=== PATIENT | female | born 1955 | race Caucasian/White ===

== ENCOUNTER 2019-11-03 15:46 | Emergency (ER) | payer OTHER ==
[2019-11-03] MEDS ORDERED: ALBUTEROL 2.5 MG/3 ML NEB SOL ONE (18:30)
[2019-11-03] MEDS ORDERED: IPRATROPIUM BROM 0.5MG/2.5ML ONE (18:30)
[2019-11-03] MEDS ORDERED: predniSONE 20 MG TAB ONE (18:30)
[2019-11-03] MEDS ORDERED: CEFTRIAXONE/SWI 1gm 1 GM/10 ML SYR ONE (18:30)
[2019-11-03] MEDS ORDERED: NA CHLORIDE 0.9% 2,000 ML ONE (18:32)
--- NOTE | 2019-11-03 18:43 | RAD REPORT ---
EXAM DESCRIPTION: RAD - Chest Single View - 11/03/2019 6:23 pm CLINICAL HISTORY: COUGH COMPARISON: No comparisons TECHNIQUE: AP portable chest image was obtained 11/03/2019 6:23 pm . FINDINGS: Lungs are normal volume. Patient has a baseline fibrotic pattern. Medial right base pneumo becca findings are present. Faint rounded density in the right midlung field is probably some form of a rtifact rather than a true lung lesion. No comparisons are available. This can be re-evaluated with a follow-up examination the tracks the pneumonia. Heart and vasculature are normal. No measurable pleu ral effusion and no pneumothorax. No acute bony abnormality seen. No acute aortic findings suspected. IMPRESSION: Medial right lung base pneumonia. Faint lucent density in the right midlung field warrants ongoing monitoring. Follow-up chest examination in 4-6 weeks could be performed to assure clearing of the pneumonia and t o re-evaluate the right mid lung field finding.
[2019-11-03 19:07] LABS: Absolute Lymphocytes (CBC) 1.2 K/uL (0.7-4.9); Basophils % 0.2 % (0-1.3); Hematocrit 35.7 % (36.0-45.0); Lymphocytes % 7.7 % (15.3-44.8); RBC Red Blood Cell Count 3.75 M/uL (3.86-4.86)
[2019-11-03 19:11] LABS: Protime INR 1.19
[2019-11-03] MEDS ORDERED: MORPHINE 4 MG/ML SYR ONE (19:14)
[2019-11-03] MEDS ORDERED: ONDANSETRON 4 MG/2 ML VIAL ONE (19:14)
[2019-11-03 19:24] LABS: ALT/SGPT 14 U/L (12-78); AST/SGOT 12 U/L (15-37); Albumin 3.9 g/dL (3.4-5.0); Alkaline Phosphatase 104 U/L (45-117); Amylase Level 26 U/L (25-115); BUN Blood Urea Nitrogen 16 mg/dL (7-18); Bicarbonate 22 mmol/L (21-32); Bilirubin Direct 0.2 mg/dL (0-0.2); Bilirubin Total 0.9 mg/dL (0.2-1.0); CKMB Creatine Kinase MB < 1.0 ng/mL (0.3-3.6); Creatine Phosphokinase 60 U/L (26-192); Glucose Level 85 mg/dL (74-106); Lipase 33 U/L (73-393); Potassium 3.5 mmol/L (3.5-5.1); Protein, Total 7.7 g/dL (6.4-8.2); Sodium Level 134 mmol/L (136-145); Troponin (Emerg Dept Use Only) < 0.02 ng/mL (0.0-0.045)
[2019-11-03] MEDS ORDERED: NA CHLORIDE 0.9% 250 ML ONE (19:53)
[2019-11-03] MEDS ORDERED: AZITHROMYCIN 500 MG INJ IVPB ONE (19:53)
[2019-11-03 20:06] LABS: Urine Bacteria <20 /HPF (<20); Urine Culture Reflex Order NOT NEEDED; Urine Mucus 1+ /HPF (NONE SEEN)
[2019-11-03 20:06] LABS: Urine Blood 2+ (NEG); Urine Glucose NEGATIVE (NEG); Urine Protein NEGATIVE (NEG); Urine Specific Gravity 1.015 (1.005-1.030); Urine pH 5.5 (5.0-7.0)
--- NOTE | 2019-11-04 00:11 | ER ---
Nurse's Notes [facility] Name: Sarahy Kaba Age: 64 yrs Sex: Female : 1955 Arrival Date: 11/03/2019 Time: 15:50 Bed 6 Private MD: Diagnosis: Pneumonia-Right Lower Lobe Presentation: 11/03 16:05 Presenting complaint: Patient states: "Went to [place] clinic today. They sent me here for ca1 probable Pnuemonia or Flu". Pt c/o fever x 3 days off and on. Cough and congestion chronic, Pneumonia for 15 - 16 months off and on. Complains of general body weakness for the past few days. Transition of care: patient was not received from another setting of care. Onset of symptoms was November 03, 2019. Risk Assessment: Do you want to hurt yourself or someone else? Patient reports no desire to harm self or others. Initial Sepsis Screen: Does the patient meet any 2 criteria? No. Patient's initial sepsis screen is negative. Does the patient have a suspected source of infection? No. Patient's initial sepsis screen is negative. Care prior to arrival: None. 16:05 Method Of Arrival: Ambulatory ca1 16:05 Acuity: APOLINAR 3 ca1 Triage Assessment: 17:30 General: Appears in no apparent distress. comfortable, Behavior is cooperative, bp appropriate for age, anxious. Pain: Denies pain. EENT: No deficits noted. Neuro: No deficits noted. Cardiovascular: No deficits noted. Respiratory: Reports cough that is. GI: No signs and/or symptoms were reported involving the gastrointestinal system. : No signs and/or symptoms were reported regarding the genitourinary system. Derm: No deficits noted. Musculoskeletal: No deficits noted. Historical: - Allergies: 16:12 Demerol; ca1 16:12 Naproxen; ca1 - PMHx: 16:12 Pneumonia; ca1 - PSHx: 16:12 neck surg; ca1 16:14 Hysterectomy; ca1 - Immunization history:: Adult Immunizations up to date, Flu vaccine is not up to date. - Coronavirus screen:: The patient has NOT traveled to [place], [place], or [place] in the past 14 days. The patient has NOT had contact with known/suspected case of Coronavirus?. - Social history:: Smoking status: Patient reports the use of cigarette tobacco products, smokes one pack cigarettes per day. - Ebola Screening: : Patient negative for fever greater than or equal to 101.5 degrees Fahrenheit, and additional compatible Ebola Virus Disease symptoms Patient denies exposure to infectious person Patient denies travel to an Ebola-affected area in the 21 days before illness onset No symptoms or risks identified at this time. Screenin:43 Abuse screen: Denies threats or abuse. Denies injuries from another. Nutritional bp screening: No deficits noted. Tuberculosis screening: No symptoms or risk factors identified. Fall Risk None identified. Assessment: 17:30 General: SEE TRIAGE NOTE. bp 18:07 Reassessment: MD AT B/S FOR EVALUATION. bp 20:37 Reassessment: Patient appears in no apparent distress at this time. Patient and/or rv family updated on plan of care and expected duration. Pain level reassessed. Patient is alert, oriented x 3, equal unlabored respirations, skin warm/dry/pink. Patient states feeling better. 22:01 Reassessment: Patient appears in no apparent distress at this time. blood pressure has rv episodes of dropping between 80-90 systolic. patient denies any symptom like dizziness or light headedness. 22:58 Reassessment: Patient appears in no apparent distress at this time. Patient and/or ea family updated on plan of care and expected duration. Pain level reassessed. Patient is alert, oriented x 3, equal unlabored respirations, skin warm/dry/pink. still awaiting acceptance from [facility]. patient and family updated. Vital Signs: 16:12 BP 110 / 99; Pulse 100; Resp 19 S; Temp 99.1(O); Pulse Ox 95% on R/A; Weight 54.43 kg ca1 (R); Height 5 ft. 6 in. (167.64 cm) (R); 18:06 BP 109 / 68; Pulse 102; Resp 24; Pulse Ox 93% on R/A; bp 19:00 BP 111 / 67; Pulse 95; Resp 18; Pulse Ox 100% on R/A; rv 20:38 BP 96 / 61; Pulse 89; Resp 16; Pulse Ox 97% on R/A; rv 21:00 BP 89 / 58; Pulse 87; Resp 17; Pulse Ox 98% on R/A; rv 21:15 BP 87 / 61; Pulse 85; Resp 17; Pulse Ox 97% on R/A; rv 21:30 BP 92 / 67; Pulse 84; Resp 16; Pulse Ox 97% on R/A; rv 22:03 BP 90 / 59; Pulse 81; Resp 16; Pulse Ox 97% on R/A; rv 22:30 BP 98 / 62; Pulse 83; Resp 17; Pulse Ox 97% on R/A; ea 22:45 BP 93 / 61; Pulse 79; Resp 17; Pulse Ox 96% on R/A; ea 23:30 BP 95 / 59; Pulse 71; Resp 18; Pulse Ox 96% on R/A; ea 11/04 00:11 BP 104 / 71; Pulse 77; Resp 18; Pulse Ox 95% ; ea 00:45 BP 101 / 65; Pulse 81; Resp 16; Pulse Ox 96% on R/A; rv 11/03 16:12 Body Mass Index 19.37 (54.43 kg, 167.64 cm) ca1 ED Course: 11/03 15:50 Patient arrived in ED. as 15:52 Lonnie Motta MD is Attending Physician. kdr 16:10 Triage completed. ca1 16:12 Arm band placed on right wrist. ca1 17:42 Yousuf Sotelo, RN is Primary Nurse. bp 17:43 Patient has correct armband on for positive identification. Bed in low position. Call bp light in reach. Side rails up X2. 18:21 CXR XRAY In Process Unspecified. EDMS 18:30 Inserted saline lock: 22 gauge in right forearm, using aseptic technique. Blood em collected. 18:59 EKG done, by ED staff, reviewed by Lonnie Motta MD. em1 19:03 Primary Nurse role handed off by Yousuf Sotelo, RN rv 19:03 Paul Torres, GODWIN is Primary Nurse. rv 19:12 Wilner Kennedy FNP-C is PHCP. la1 11/04 00:46 No provider procedures requiring assistance completed. IV discontinued, intact, rv bleeding controlled, No redness/swelling at site. Pressure dressing applied. Administered Medications: 11/03 18:30 Drug: NS 0.9% (30 ml/kg) 30 ml/kg Route: IV; Rate: bolus; Site: right forearm; em 18:30 Drug: Rocephin - (cefTRIAXone) 1 grams Route: IVPB; Infused Over: 30 mins; Site: right em forearm; 20:39 Follow up: IV Status: Completed infusion rv 18:30 Drug: Albuterol - atroVENT (3:1) (2.5 mg - 0.5 mg) 3 ml Route: Nebulizer; em 20:39 Follow up: Response: No adverse reaction rv 18:30 Drug: predniSONE 60 mg Route: PO; em 20:39 Follow up: Response: No adverse reaction rv 19:14 Drug: Zofran 4 mg Route: IVP; Site: right antecubital; ea 20:39 Follow up: Response: No adverse reaction rv 19:16 Drug: morphine 4 mg Route: IVP; Site: right antecubital; ea 20:39 Follow up: Response: No adverse reaction; Marked relief of symptoms; Pain is decreased; rv RASS: Alert and Calm (0) 20:03 Drug: Zithromax 500 mg Route: IVPB; Infused Over: 1 hrs; Site: right forearm; rv 11/04 00:30 Drug: Xopenex 1.25 mg Route: Inhalation; rv 00:45 Follow up: Response: No adverse reaction; Marked relief of symptoms rv Outcome: 00:10 Discharge ordered by . la1 00:46 Discharged to home ambulatory, with family. rv 00:46 Condition: good 00:46 Discharge instructions given to patient, Instructed on discharge instructions, follow up and referral plans. medication usage, Demonstrated understanding of instructions, follow-up care, medications, Prescriptions given X 2. 00:46 Patient left the ED. rv Signatures: Dispatcher [employer] Lonnie Ledezma MD MD kdr Munoz, Edgar RN Leann Rice Eric em1 Wilner Kennedy, OPTOMETRIST PRESIDENT/PRACTICE OWNER-C OPTOMETRIST PRESIDENT/PRACTICE OWNER-Cla1 Chasity Nickerson RN RN ea Peltier, Brian, RN Paul Galaviz RN RN rv Tere Abernathy RN RN ca1 Corrections: (The following items were deleted from the chart) 11/03 22:04 21:00 BP 92 / 67; Pulse 84bpm; Resp 16bpm; Pulse Ox 97% RA; rv rv
--- NOTE | 2019-11-04 00:12 | EDPHYS ---
Physician Documentation [facility] Name: Sarahy Kaba Age: 64 yrs Sex: Female : 1955 Arrival Date: 11/03/2019 Time: 15:50 Bed 6 Private MD: ED Physician Lonnie Motta HPI: 11/03 18:18 This 64 yrs old Female presents to ER via Ambulatory with [facility]. 18:18 The patient has been intermittently ill for the past six to nine months and has kdr resisted inpatient admission for possible pneumonia. Outpatient treatment has apparently not been completely successful and for the last three days has had generalized myalgias and subjective fever. She is concerned that she may have pneumonia and the flu.. Onset: The symptoms/episode began/occurred gradually, 3 day(s) ago. Severity of symptoms: At their worst the symptoms were moderate in the emergency department the symptoms are unchanged. The patient has experienced similar episodes in the past, multiple times. The patient has been recently seen by a physician: Sent from the [place] today. Historical: - Allergies: 16:12 Demerol; ca1 16:12 Naproxen; ca1 - PMHx: 16:12 Pneumonia; ca1 - PSHx: 16:12 neck surg; ca1 16:14 Hysterectomy; ca1 - Immunization history:: Adult Immunizations up to date, Flu vaccine is not up to date. - Coronavirus screen:: The patient has NOT traveled to [place], [place], or [place] in the past 14 days. The patient has NOT had contact with known/suspected case of Coronavirus?. - Social history:: Smoking status: Patient reports the use of cigarette tobacco products, smokes one pack cigarettes per day. - Ebola Screening: : Patient negative for fever greater than or equal to 101.5 degrees Fahrenheit, and additional compatible Ebola Virus Disease symptoms Patient denies exposure to infectious person Patient denies travel to an Ebola-affected area in the 21 days before illness onset No symptoms or risks identified at this time. ROS: 18:21 Constitutional: Negative for weight loss has had fever, chills and generalized myalgias kdr Eyes: Negative for injury, pain, redness, and discharge, ENT: Negative for injury, pain, and discharge, Neck: Negative for injury, pain, and swelling, Cardiovascular: Negative for chest pain, palpitations, and edema, Back: Negative for injury and pain, : Negative for injury, bleeding, discharge, and swelling, Skin: Negative for injury, rash, and discoloration, Neuro: Negative for headache, weakness, numbness, tingling, and seizure activity. Psych: Negative for depression, anxiety, suicide ideation, homicidal ideation, and hallucinations, Allergy/Immunology: Negative for hives, rash, and allergies, Endocrine: Negative for neck swelling, polydipsia, polyuria, polyphagia, and marked weight changes, Hematologic/Lymphatic: Negative for swollen nodes, abnormal bleeding, and unusual bruising. 18:21 Respiratory: Positive for cough, with yellow sputum, dyspnea on exertion, shortness of breath, wheezing, Negative for 18:21 Abdomen/GI: Positive for abdominal pain, nausea, Negative for abdominal distension, anorexia, dysphagia, hematemesis, black/tarry stool, rectal pain, rectal bleeding, bowel incontinence. Exam: 18:21 Constitutional: This is a well developed, well nourished patient who is awake, alert, kdr and in no acute distress. Head/Face: Normocephalic, atraumatic. Eyes: Pupils equal round and reactive to light, extra-ocular motions intact. Lids and lashes normal. Conjunctiva and sclera are non-icteric and not injected. Cornea within normal limits. Periorbital areas with no swelling, redness, or edema. Neck: Trachea midline, no thyromegaly or masses palpated, and no cervical lymphadenopathy. Supple, full range of motion without nuchal rigidity, or vertebral point tenderness. No Meningismus. Chest/axilla: Normal chest wall appearance and motion. Nontender with no deformity. No lesions are appreciated. Cardiovascular: Regular rate and rhythm with a normal S1 and S2. No gallops, murmurs, or rubs. Normal PMI, no JVD. No pulse deficits. Abdomen/GI: Soft, non-tender, with normal bowel sounds. No distension or tympany. No guarding or rebound. No evidence of tenderness throughout. Back: No spinal tenderness. No costovertebral tenderness. Full range of motion. Skin: Warm, dry with normal turgor. Normal color with no rashes, no lesions, and no evidence of cellulitis. MS/ Extremity: Pulses equal, no cyanosis. Neurovascular intact. Full, normal range of motion. Neuro: Awake and alert, GCS 15, oriented to person, place, time, and situation. Cranial nerves II-XII grossly intact. Motor strength 5/5 in all extremities. Sensory grossly intact. Cerebellar exam normal. Normal gait. Psych: Awake, alert, with orientation to person, place and time. Behavior, mood, and affect are within normal limits. 18:21 Respiratory: the patient does not display signs of respiratory distress, Respirations: normal, Breath sounds: rales, that are moderate, rhonchi, that are moderate, are heard diffusely, + upper airway congestion. wheezing: that is moderate, is heard diffusely. Vital Signs: 16:12 BP 110 / 99; Pulse 100; Resp 19 S; Temp 99.1(O); Pulse Ox 95% on R/A; Weight 54.43 kg ca1 (R); Height 5 ft. 6 in. (167.64 cm) (R); 18:06 BP 109 / 68; Pulse 102; Resp 24; Pulse Ox 93% on R/A; bp 19:00 BP 111 / 67; Pulse 95; Resp 18; Pulse Ox 100% on R/A; rv 20:38 BP 96 / 61; Pulse 89; Resp 16; Pulse Ox 97% on R/A; rv 21:00 BP 89 / 58; Pulse 87; Resp 17; Pulse Ox 98% on R/A; rv 21:15 BP 87 / 61; Pulse 85; Resp 17; Pulse Ox 97% on R/A; rv 21:30 BP 92 / 67; Pulse 84; Resp 16; Pulse Ox 97% on R/A; rv 22:03 BP 90 / 59; Pulse 81; Resp 16; Pulse Ox 97% on R/A; rv 22:30 BP 98 / 62; Pulse 83; Resp 17; Pulse Ox 97% on R/A; ea 22:45 BP 93 / 61; Pulse 79; Resp 17; Pulse Ox 96% on R/A; ea 23:30 BP 95 / 59; Pulse 71; Resp 18; Pulse Ox 96% on R/A; ea 11/04 00:11 BP 104 / 71; Pulse 77; Resp 18; Pulse Ox 95% ; ea 00:45 BP 101 / 65; Pulse 81; Resp 16; Pulse Ox 96% on R/A; rv 11/03 16:12 Body Mass Index 19.37 (54.43 kg, 167.64 cm) ca1 MDM: 11/03 18:21 Data reviewed: vital signs, nurses notes, lab test result(s), EKG, radiologic studies. kdr Counseling: I had a detailed discussion with the patient and/or guardian regarding: the historical points, exam findings, and any diagnostic results supporting the discharge/admit diagnosis, lab results, radiology results. 19:49 Patient medically screened. la1 11/04 00:07 Differential diagnosis: viral Infection, bacterial infection, bronchitis, pneumonia. la1 Data interpreted: Pulse oximetry: on room air is 96 %. Interpretation: normal. Medication response: xopinex . Response to treatment: the patient's symptoms have mildly improved after treatment, and as a result, I will discharge patient. ED course: Discussed case with Dr. Bianchi at the [place] who states that it sounds like the patient could be better managed on an outpatient basis, at this time I agree Pt CURB-65 score is 0. No resp distress, no oxygen requirements at this time. Pt feeling ok, ambulating up and down the [place] without assistance. Will give pt oral abx and have FU outpatient in the clinic, strict return precautions given. . 11/03 18:14 Order name: Amylase, Serum; Complete Time: 19:47 [facility] [address] 11/03 18:14 Order name: Basic Metabolic Panel; Complete Time: 19:47 [facility] [address] 11/03 18:14 Order name: Blood Culture Adult (2) kdr 11/03 18:14 Order name: CBC with Diff; Complete Time: 19:47 [facility] [address] 11/03 18:14 Order name: Ckmb; Complete Time: 19:47 [facility] [address] 11/03 18:14 Order name: CPK; Complete Time: 19:47 [facility] [address] 11/03 18:14 Order name: Lactate; Complete Time: 20:08 [facility] [address] 11/03 18:14 Order name: LFT's; Complete Time: 19:47 [facility] [address] 11/03 18:14 Order name: Lipase; Complete Time: 19:47 [facility] [address] 11/03 18:14 Order name: Procalcitonin; Complete Time: 20:08 [facility] [address] 11/03 18:14 Order name: Protime (+inr); Complete Time: 19:47 [facility] [address] 11/03 18:14 Order name: Ptt, Activated; Complete Time: 19:47 [facility] [address] 11/03 18:14 Order name: Troponin (emerg Dept Use Only); Complete Time: 19:47 kdr 11/03 18:14 Order name: Urine Microscopic Only; Complete Time: 20:07 kdr 11/03 18:05 Order name: CXR XRAY; Complete Time: 19:08 kdr 11/03 18:14 Order name: Accucheck; Complete Time: 18:53 kdr 11/03 18:14 Order name: Cardiac monitoring; Complete Time: 18:53 kdr 11/03 18:14 Order name: EKG - Nurse/Tech; Complete Time: 18:53 kdr 11/03 18:14 Order name: IV Saline Lock - Large Bore; Complete Time: 18:53 kdr 11/03 18:14 Order name: Labs collected and sent; Complete Time: 18:53 kdr 11/03 18:14 Order name: Flu; Complete Time: 19:47 kdr 11/03 19:46 Order name: Urine Dipstick--Ancillary (enter results); Complete Time: 20:08 mw2 11/03 18:14 Order name: O2 Per Protocol; Complete Time: 18:53 kdr 11/03 18:14 Order name: O2 Sat Monitoring; Complete Time: 18:53 kdr 11/03 18:14 Order name: Urine Dipstick-Ancillary (obtain specimen); Complete Time: 20:43 kdr Administered Medications: 11/03 18:30 Drug: NS 0.9% (30 ml/kg) 30 ml/kg Route: IV; Rate: bolus; Site: right forearm; em 18:30 Drug: Rocephin - (cefTRIAXone) 1 grams Route: IVPB; Infused Over: 30 mins; Site: right em forearm; 20:39 Follow up: IV Status: Completed infusion rv 18:30 Drug: Albuterol - atroVENT (3:1) (2.5 mg - 0.5 mg) 3 ml Route: Nebulizer; em 20:39 Follow up: Response: No adverse reaction rv 18:30 Drug: predniSONE 60 mg Route: PO; em 20:39 Follow up: Response: No adverse reaction rv 19:14 Drug: Zofran 4 mg Route: IVP; Site: right antecubital; ea 20:39 Follow up: Response: No adverse reaction rv 19:16 Drug: morphine 4 mg Route: IVP; Site: right antecubital; ea 20:39 Follow up: Response: No adverse reaction; Marked relief of symptoms; Pain is decreased; rv RASS: Alert and Calm (0) 20:03 Drug: Zithromax 500 mg Route: IVPB; Infused Over: 1 hrs; Site: right forearm; rv 11/04 00:30 Drug: Xopenex 1.25 mg Route: Inhalation; rv 00:45 Follow up: Response: No adverse reaction; Marked relief of symptoms rv Disposition: 07:32 Co-signature as Attending Physician, Lonnie Motta MD I agree with the assessment and kdr plan of care. PA/CORE DRIER's history reviewed, patient interviewed, and examined. Disposition: 11/04/19 00:10 Discharged to Home. Impression: Pneumonia-Right Lower Lobe. - Condition is Stable. - Discharge Instructions: Community-Acquired Pneumonia, Adult, Cough, Adult. - Prescriptions for Prednisone 20 mg Oral Tablet - take 3 tablet by ORAL route once daily for 5 days; 15 tablet. Zithromax 500 mg Oral Tablet - take 1 tablet by ORAL route once daily for 5 days; 5 tablet. - Medication Reconciliation Form, Thank You Letter, Antibiotic Education form. - Follow up: Private Physician; When: 2 - 3 days; Reason: Recheck today's complaints, Re-evaluation by your physician. - Problem is new. - Symptoms have improved. - Notes: [facility] or return immediately to the ER with difficulty breathing or worsening of your symptoms. Signatures: Dispatcher [employer] EDLonnie Haas MD MD [facility] [address] Zeus Diaz RN RN em Wilner Kennedy, SHEET COMBINING OPERATOR-C SHEET COMBINING OPERATOR-Cla1 Chasity Nickerson RN Paul Darden ea RN Tere Vaughn RN RN ca1 Corrections: (The following items were deleted from the chart) 00:46 00:10 11/04/2019 00:10 Discharged to Home. Impression: Pneumonia-Right Lower Lobe. rv Condition is Stable. Forms are Medication Reconciliation Form, Thank You Letter, Antibiotic Education, Prescription Opioid Use. Follow up: Private Physician; When: 2 - 3 days; Reason: Recheck today's complaints, Re-evaluation by your physician. Problem is new. Symptoms have improved. la1
[2019-11-04] MEDS ORDERED: LEVALBUTEROL 1.25 MG/3 ML NEB ONE (00:21)
[2019-11-04 01:10] VITALS: TEMP 99.1
[2019-11-04 01:26] VITALS: BP 101/65; O2SAT 96
--- NOTE | 2019-11-04 09:39 | EKG ---
Test Date: 2019-11-03 Test Time: 18:58:37 [employer] Machine: MARISOL MEASUREMENT RESULTS: Intervals: Rate: 93 MO: 152 QRSD: 92 QT: 370 QTc: 460 [place]: P: 71 MO: 152 QRS: 15 T: 51 INTERPRETIVE STATEMENTS: Normal sinus rhythm Incomplete right bundle branch block T wave abnormality, consider anterior ischemia Abnormal ECG No previous ECG available for comparison Electronically Signed On 11-04-19 09:38:39 PRODUCTION ZONE LEADER by Bret Joe
== END 2019-11-04 00:46 | disposition home or self-care (01) ==
LOC: ER 15:46
DX: J18.9 Pneumonia, unspecified organism (principal); F17.210 Nicotine dependence, cigarettes, uncomplicated; Z88.5 Allergy status to narcotic agent; Z88.6 Allergy status to analgesic agent
CPT/HCPCS: 96365; 93005; 87040 ×2; 85025; 80048; 36415; 82150; 82550; 85610; 80076; 83605; 85730; 84484; 82553; 83690; 84145; 87804 ×2; 71045; 94640; 96375; 99284; 96366; J7512; J0456; J0696; J7030 ×2; J2405; 81003; 81015